=== PATIENT | male | born 1965 | race Caucasian/White ===

== ENCOUNTER → 2017-09-05 | Outpatient (CLI) | payer OTHER ==
[~2017-09-05] MED LIST: ACETAMINOPHEN650 M5 PO; ASPIRIN EC81 M1 PO; CARVEDILOL12.5 MG PO; COZAAR 50 MG TA50 M1 PO; HYDROCODON-ACE1 EAC7 PO; IBUPROFEN 800800 M1 PO; LIPITOR40 MG PO; PRAVACHOL20 MG PO; PROTONIX40 M2 PO; TOPROL XL50 MG PO; TRAMADOL 50 MG50 MG PO
== END ==
LOC: CAT 05-26 06:30
DX: I71.2 Thoracic aortic aneurysm, without rupture (principal); I25.10 Atherosclerotic heart disease of native coronary artery without angina pectoris

== ENCOUNTER → 2020-02-08 | Outpatient (CLI) | payer OTHER | LOC: SJCVCIMAG 10:06 | PROVIDERS: ATTEND Internal Medicine | DX: I08.1 Rheumatic disorders of both mitral and tricuspid valves (principal); I71.2 Thoracic aortic aneurysm, without rupture; I44.7 Left bundle-branch block, unspecified; I25.10 Atherosclerotic heart disease of native coronary artery without angina pectoris; I10 Essential (primary) hypertension; Z95.0 Presence of cardiac pacemaker ==

== ENCOUNTER → 2021-03-06 | Outpatient (CLI) | payer OTHER | LOC: SJCVCIMAG 09:04 | PROVIDERS: ATTEND Internal Medicine | DX: I08.1 Rheumatic disorders of both mitral and tricuspid valves (principal); I42.9 Cardiomyopathy, unspecified; I71.2 Thoracic aortic aneurysm, without rupture ==